=== PATIENT | female | born 1990 | race Caucasian/White ===

== ENCOUNTER 2016-07-23 15:36 | Emergency (ER) | payer MEDICAID ==
[~2016-07-23 15:36] MED LIST: ACETAMINOPHEN325 MG PO; ALBUTEROL; CYCLOBENZAPRINE10 MG PO; HYDROCODON-ACE1 EAC7 PO; IBUPROFEN600 MG PO; PERCOCET 10/3251 TA1 PO; PERCOCET 5-3251 TAB PO; PROAIR HFA8.5 GM INH; PROTONIX40 MG PO
== END 2016-07-23 19:14 | disposition left against medical advice (07) ==
LOC: D.ER 15:36
DX: M53.3 Sacrococcygeal disorders, not elsewhere classified (principal)

== ENCOUNTER 2016-07-25 19:55 | Emergency (ER) | payer MEDICAID ==
[2015-10-15 07:56] VITALS: BMI 27.5
[2016-07-25 20:27] LABS: BASOPHILS 0.2 % (0-2); EOSINOPHILS 0.9 % (0-7); HEMATOCRIT 35.3 % (36.0-48.0); HEMOGLOBIN 11.9 g/dL (12-16); IMMATURE GRANULOCYTES 0.2 % (0-5); LYMPHOCYTES 23.4 % (15-50); MCH 31.3 pg (26.0-34.0); MCHC 33.7 g/dL (31.0-37.0); MCV 92.9 fL (80.0-100.0); MEAN PLATELET VOLUME 9.7 fL (7.4-10.4); NEUTROPHILS 70.3 % (40-80); RDW 14.1 % (11.5-14.5); WBC 16.4 10x3/uL (4.8-10.8)
[2016-07-25 20:28] LABS: PLATELET COUNT 294 10x3/uL (130-400)
[2016-07-25 20:31] LABS: APPEARANCE CLOUDY (CLEAR); BILIRUBIN NEGATIVE (NEGATIVE); COLOR YELLOW (YELLOW); GLUCOSE NEGATIVE (NEGATIVE); KETONE NEGATIVE (NEGATIVE); LEUKOCYTE ESTERASE 2+ (NEGATIVE); NITRITE POSITIVE (NEGATIVE); PROTEIN 3+ mg/dL (NEGATIVE); SPECIFIC GRAVITY 1.015 (1.005-1.020); UROBILINOGEN NORMAL (NORMAL)
[2016-07-25 20:37] LABS: HCG SERUM NEGATIVE (NEGATIVE)
[2016-07-25 20:38] LABS: BACTERIA MANY /hpf (NONE SEEN); EPITHELIAL CELLS 0-5 /hpf (0-5); RED CELLS - URINE 25-50 /hpf (0-5)
== END 2016-07-25 21:30 | disposition home or self-care (01) ==
LOC: D.ER 19:55
PROVIDERS: Emergency Medicine
DX: K50.90 Crohn's disease, unspecified, without complications (principal); F17.200 Nicotine dependence, unspecified, uncomplicated

== ENCOUNTER 2016-08-06 15:33 | Emergency (ER) | payer MEDICAID ==
[2015-10-15 07:56] VITALS: BMI 27.5
== END 2016-08-06 17:56 | disposition left against medical advice (07) ==
LOC: D.ER 15:33
DX: M25.552 Pain in left hip (principal)

== ENCOUNTER 2016-09-17 13:15 | Emergency (ER) | payer MEDICAID ==
[2015-10-15 07:56] VITALS: BMI 27.5
== END 2016-09-17 16:30 | disposition home or self-care (01) ==
LOC: D.ER 13:15
DX: M75.51 Bursitis of right shoulder (principal); M62.838 Other muscle spasm; J45.909 Unspecified asthma, uncomplicated

== ENCOUNTER 2016-10-11 21:43 | Emergency (ER) | payer MEDICAID ==
[2015-10-15 07:56] VITALS: BMI 27.5
== END 2016-10-11 23:17 | disposition home or self-care (01) ==
LOC: D.ER 21:43
DX: S30.0XXA Contusion of lower back and pelvis, initial encounter (principal); W19.XXXA Unspecified fall, initial encounter; Y92.830 Public park as the place of occurrence of the external cause; F17.200 Nicotine dependence, unspecified, uncomplicated

== ENCOUNTER 2017-01-22 04:28 | Emergency (ER) | payer MEDICAID ==
[2015-10-15 07:56] VITALS: BMI 27.5
[2017-01-22 05:21] LABS: BASOPHILS 0.5 % (0-2); EOSINOPHILS 0.6 % (0-7); HEMATOCRIT 35.2 % (36.0-48.0); IMMATURE GRANULOCYTES 0.1 % (0-5); LYMPHOCYTES 41.2 % (15-50); MCH 30.8 pg (26.0-34.0); MCHC 34.1 g/dL (31.0-37.0); MCV 90.5 fL (80.0-100.0); MEAN PLATELET VOLUME 8.8 fL (7.4-10.4); MONOCYTES 7.5 % (2-11); NEUTROPHILS 50.1 % (40-80); PLATELET COUNT 303 10x3/uL (130-400); RBC 3.89 10x6/uL (4.00-5.40); RDW 12.9 % (11.5-14.5); WBC 9.9 10x3/uL (4.8-10.8)
[2017-01-22 05:32] LABS: HCG SERUM NEGATIVE (NEGATIVE)
[2017-01-22 06:40] LABS: APPEARANCE CLEAR (CLEAR); BILIRUBIN NEGATIVE (NEGATIVE); COLOR YELLOW (YELLOW); GLUCOSE NEGATIVE (NEGATIVE); KETONE MODERATE mg/dL (NEGATIVE); NITRITE NEGATIVE (NEGATIVE); PROTEIN NEGATIVE (NEGATIVE); UROBILINOGEN NORMAL (NORMAL)
[2017-01-22 06:42] LABS: BACTERIA FEW /hpf (NONE SEEN); RED CELLS - URINE 0-5 /hpf (0-5); WHITE CELLS - URINE OCC /hpf (0-5)
== END 2017-01-22 08:41 | disposition home or self-care (01) ==
LOC: D.ER 04:28
PROVIDERS: Emergency Medicine
DX: S39.94XA Unspecified injury of external genitals, initial encounter (principal); Y04.2XXA Assault by strike against or bumped into by another person, initial encounter; Y93.89 Activity, other specified; Y92.89 Other specified places as the place of occurrence of the external cause; N93.9 Abnormal uterine and vaginal bleeding, unspecified

== ENCOUNTER 2017-06-18 21:46 | Emergency (ER) | payer MEDICAID ==
[2015-10-15 07:56] VITALS: BMI 27.5
[2017-06-18 22:48] LABS: BASOPHILS 0.4 % (0-2); EOSINOPHILS 0.6 % (0-7); HEMATOCRIT 35.4 % (36.0-48.0); HEMOGLOBIN 11.8 g/dL (12-16); IMMATURE GRANULOCYTES 0.3 % (0-5); LYMPHOCYTES 18.4 % (15-50); MCH 30.6 pg (26.0-34.0); MCHC 33.3 g/dL (31.0-37.0); MCV 91.9 fL (80.0-100.0); MEAN PLATELET VOLUME 8.7 fL (7.4-10.4); MONOCYTES 5.9 % (2-11); NEUTROPHILS 74.4 % (40-80); PLATELET COUNT 338 10x3/uL (130-400); RBC 3.85 10x6/uL (4.00-5.40); RDW 12.7 % (11.5-14.5); WBC 16.5 10x3/uL (4.8-10.8)
== END 2017-06-18 22:59 | disposition home or self-care (01) ==
LOC: D.ER 21:46
PROVIDERS: Emergency Medicine
DX: R10.9 Unspecified abdominal pain (principal); J45.909 Unspecified asthma, uncomplicated

== ENCOUNTER 2017-10-29 14:50 | Emergency (ER) | payer MEDICAID ==
[2017-10-29 15:08] VITALS: Ht 157.5 cm
[2017-10-29 15:31] LABS: BASOPHILS 0.5 % (0-2); HEMATOCRIT 35.9 % (36.0-48.0); HEMOGLOBIN 12.4 g/dL (12-16); IMMATURE GRANULOCYTES 0.1 % (0-5); LYMPHOCYTES 35.1 % (15-50); MCH 30.8 pg (26.0-34.0); MCHC 34.5 g/dL (31.0-37.0); MCV 89.1 fL (80.0-100.0); MEAN PLATELET VOLUME 8.9 fL (7.4-10.4); MONOCYTES 9.5 % (2-11); NEUTROPHILS 51.8 % (40-80); RBC 4.03 10x6/uL (4.00-5.40); RDW 13.1 % (11.5-14.5); WBC 9.4 10x3/uL (4.8-10.8)
[2017-10-29 15:33] LABS: APPEARANCE SL CLDY (CLEAR); BILIRUBIN NEGATIVE (NEGATIVE); COLOR DK YELLOW (YELLOW); GLUCOSE NEGATIVE (NEGATIVE); KETONE MODERATE mg/dL (NEGATIVE); NITRITE NEGATIVE (NEGATIVE); PROTEIN TRACE mg/dL (NEGATIVE); UROBILINOGEN NORMAL (NORMAL)
[2017-10-29 15:35] LABS: BACTERIA FEW /hpf (NONE SEEN); MUCUS >1+ /lpf (NONE SEEN); RED CELLS - URINE 0-5 /hpf (0-5); WHITE CELLS - URINE 0-5 /hpf (0-5)
[2017-10-29 15:36] LABS: SPERMATOZOA 0-5 /hpf (NONE SEEN)
[2017-10-29 15:37] LABS: UDS - AMPHET POSITIVE QUAL (NEGATIVE); UDS - BARB NEGATIVE QUAL (NEGATIVE); UDS - BENZO NEGATIVE QUAL (NEGATIVE); UDS - COCAINE NEGATIVE QUAL (NEGATIVE); UDS - OPIATE NEGATIVE QUAL (NEGATIVE); UDS - PCP NEGATIVE QUAL (NEGATIVE); UDS - THC NEGATIVE QUAL (NEGATIVE)
[2017-10-29 15:40] LABS: PLATELET COUNT 223 10x3/uL (130-400)
[2017-10-29 15:56] LABS: ALBUMIN 3.9 g/dL (3.4-5.0); ALKALINE PHOSPHATASE 44 U/L (46-116); ALT (SGPT) 16 U/L (10-68); BILIRUBIN - TOTAL 0.46 mg/dL (0.2-1.3); CALC OSMOLALITY 281 mosm/kg (275-300); CALCIUM 9.1 mg/dL (8.5-10.1); CARBON DIOXIDE 28.3 mmol/L (21.0-32.0); CHLORIDE - SERUM 106 mmol/L (98-107); CREATININE - SERUM 0.7 mg/dL (0.6-1.3); GLUCOSE 98 mg/dL (74-106); POTASSIUM - SERUM 3.9 mmol/L (3.5-5.1); PROTEIN - SERUM 7.3 g/dL (6.4-8.2); SODIUM 142 mmol/L (136-145); UREA NITROGEN 9 mg/dL (7-18); eGFR NON AFRICAN AMERICAN > 90 mL/min (90-120)
[2017-10-29 17:48] VITALS: BP 132/072
== END 2017-10-29 17:50 | disposition home or self-care (01) ==
LOC: D.ER 14:50
PROVIDERS: Family Medicine
DX: F32.9 Major depressive disorder, single episode, unspecified (principal); F15.10 Other stimulant abuse, uncomplicated; F17.200 Nicotine dependence, unspecified, uncomplicated